=== PATIENT | female | born 1995 | race American Indian/Alaskan Native ===

== ENCOUNTER 2016-09-08 18:10 | Outpatient (CLI) | payer OTHER, MEDICAID | END 2016-09-08 20:34 | disposition home or self-care (01) | LOC: TRG 18:10 → LD 18:14 → TRG 20:34 | PROVIDERS: ATTEND Obstetrics & Gynecology | DX: O47.1 False labor at or after 37 completed weeks of gestation (principal); Z3A.37 37 weeks gestation of pregnancy | CPT/HCPCS: 59025 ==

== ENCOUNTER 2016-09-13 09:09 | Inpatient (IN) | payer OTHER, MEDICAID ==
[2016-09-13] MEDS ORDERED: LACTATED RINGERS 1,000 ML ONE ×2 (09:26→09:27)
[2016-09-13] MEDS ORDERED: BICITRA PO ONE (10:00)
[2016-09-13] MEDS ORDERED: PEPCID IV ONE (10:00)
[2016-09-13] MEDS ORDERED: PITOCin/NS 20 UNIT/1000ML DRIP 20 UNITS/1,000 ML BAG IV SCH ×2 (10:00→13:00)
[2016-09-13] MEDS ORDERED: ANCEF/STERILE WATER 2 GM/20 ML 2 GM/20 ML SYRINGE IV NR (10:00)
[2016-09-13] MEDS ORDERED: REGLAN IV ONE (10:00)
[2016-09-13] MEDS ORDERED: LACTATED RINGERS 1,000 ML IV SCH (10:00)
--- NOTE | 2016-09-13 10:09 | History and Physical Report ---
History of Present Illness Date of examination: 09/13/16 Date of admission: 09/13/16 09:09 Chief complaint: SROM at 38 weeks, 4 days, breech presentation, contractions A pos, R-Im, GBS neg History of present illness: Remainder of H&P from [facility] and confirmed today OB Intake Ethnicity: Methodist: NONE Occupation: Supervisor [employer] Father of baby: Roberth STEIN contact #: [phone] Vital Signs Height: 63 in. Weight (lb): 126.4 BMI: 22.4 Pre- Weight: 135 BP: 110/ 70 mm Hg Ur. Protein: Trace Ur. Glucose: Negative Chief Complaint/Current Status: pt presents c/o missed period, alot of N & V ...................................................................Keisha Robles February 27, 2016 9:53 AM Menstrual History Regularity: regular Menses every: 28 days Duration: 4 LMP: 12/18/2015 LMP reliability: definite LMP character: normal test type: urine test Date: 02/27/2016 BC at conception: none Planned ? no EDC Calculations LMP: 09/23/2016 EDC Confirmation: 09/23/2016 Gestational Age: 10 1/7 weeks Past History : 2 Past Medical History: Reviewed history from 03/10/2010 and no changes required: Asthma Past Surgical History: Reviewed history from 03/10/2010 and no changes required: Negative Past Surgical History Past Medical History Social Hx: Patient is single Smoking History: Patient has never smoked. Infection History Hx of STD: syphilis(2011) Personal hx. of genital herpes: yes Partner hx. of genital herpes: no Rash, Viral, or Febrile illness since last LMP? no Varicella/Chicken Pox Status: Unknown TB Risk: no Infection History Comments: Chlamydia:2012, 2013, 2014 Genetic History Congenital Heart Defect: Mom: no Dad: no Cierra Disease: Mom: no Dad: no Thalassemia Mom: no Dad: no Neural Tube Defect Mom: no Dad: no Down's Syndrome Mom: no Dad: no Paul-Sachs Mom: no Dad: no Sickle Cell Disease/Trait Mom: yes Dad: no Comments: Sister trait Hemophilia Mom: no Dad: no Muscular Dystrophy Mom: no Dad: no Cystic Fibrosis Mom: no Dad: no Evans Chorea Mom: no Dad: no Mental Retardation Mom: no Dad: no Fragile X Mom: no Dad: no Other Genetic/Chromosomal Disorder Mom: no Dad: no Child w/other defect Mom: no Dad: no Enviromental Exposures Enviromental Exposures Reviewed Xray Exposure: no Medication, drug, or alcohol use since LMP: yes Chemical/Other Exposure: no Exposure to Cat Liter: no Hx of Parvovirus (Fifth Disease): no Occupational Exposure to Children: other 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[employer], [employer] Active Medications (reviewed today): ONDANSETRON 8 MG TBDP (ONDANSETRON) 1 po q12hrs prn PLUS 27-1 MG TABS ( VIT-FE FUMARATE-FA) 1 po qd Current Allergies (reviewed today): No known allergies Laboratory Results Routine Urinalysis Leukocytes: trace Nitrite: negative Urobilinogen: negative Protein: Trace Blood: negative Ketone: negative Bilirubin: negative Glucose: Negative Urine HCG: positive [place]/KENNETH Source: vagina WM: rare WBCs, Clue Cells absent, Yeast absent, Trichomonas absent Review of Systems General Denies fever, chills, sweats, anorexia, fatigue, weakness, malaise, weight loss and sleep disorder. Complains of nausea and vomiting. Denies headache, swelling of legs, abdominal pain, vaginal discharge, vaginal bleeding and contractions. Denies vaginal discharge, incontinence, dysuria, hematuria, urinary frequency, amenorrhea, menorrhagia, abnormal vaginal bleeding, pelvic pain, genital sores, decreased libido, painful periods, painful sex, urinary urgency, hot flashes, vaginal dryness, vaginal itching and vaginal odor. CV Denies chest pains, palpitations, syncope, dyspnea on exertion, orthopnea, PND and peripheral edema. Resp Denies cough, dyspnea at rest, excessive sputum, hemoptysis, wheezing and pleurisy. GI Denies nausea, vomiting, diarrhea, constipation, change in bowel habits, abdominal pain, melena, hematochezia, jaundice, gas/bloating, indigestion/ heartburn, dysphagia and odynophagia. Endo Denies cold intolerance, heat intolerance, polydipsia, polyphagia, polyuria and unusual weight change. Breast Denies left breast lump, right breast lump, nipple discharge, bloody discharge from nipple, breast pain, abnormal mammogram and breast enlargement. MS Denies back pain, joint pain, joint swelling, muscle cramps, muscle weakness, stiffness, arthritis, sciatica, restless legs, leg pain at night and leg pain with exertion. Derm Denies rash, itching, dryness and suspicious lesions. Neuro Denies paralysis, paresthesias, headache, seizures, tremors, vertigo, transient blindness, frequent falls, frequent headaches and difficulty walking. Psych Denies depression, anxiety, irritability and mood swings. Eyes Denies blurring, diplopia, irritation, discharge, vision loss, eye pain and photophobia. ENT Denies earache, ear discharge, tinnitus, decreased hearing, nasal congestion, nosebleeds, sore throat and hoarseness. Allergy Denies urticaria, allergic rash, hay fever and recurrent infections. Heme Denies abnormal bruising, bleeding and enlarged lymph nodes. PHYSICAL EXAM HEENT: PERRLA, normal conjunctiva, external nose and nasal mucosa normal, oropharynx clear Neck/Thyroid: supple, thyroid normal Skin no significant abnormal lesions or rashes Chest: respiratory effort normal, clear to auscultation Breasts: normal without skin changes or masses CV: regular, normal S1-S2, no murmur, no rub, no gallop Abdomen: normal bowel sounds, soft, nontender, no HSM Musculoskeletal: grossly normal ROM in joints, no joint tenderness or muscle weakness Neuro: grossly normal DTRs, sensation, strength, cranial nerves Extremities: no clubbing, cyanosis, or edema MEDICARE SPECIALIST Exams Vulva/Vagina: No lesions, normal BUS, normal rugae Cervix: No lesions; no cervical motion tenderness Uterus: 12 weeks NT Adnexae: no masses or tenderness Rectovaginal: no masses or tenderness Flowsheet View for Follow-up Visit Estimated weeks of gestation: 10 7 Weight: 126.4 Blood pressure: 110 / 70 Urine protein: Trace Urine glucose: Negative Urine nitrite: negative Past History - Obstetrical History : 2 Medications and Allergies Allergies Allergy/AdvReac Type Severity Reaction Status Date / Time citrus Allergy Swelling Uncoded 09/13/16 09:33 Home Medications Medication Instructions Recorded Confirmed Last Taken Type No Known Home Medications [No 09/13/16 09/13/16 Unknown History Reported Home Medications] - Vital Signs Vital signs: Vital Signs Pulse Pulse Ox 59 L 98 09/13/16 09:51 09/13/16 09:51 Temp Pulse Resp BP Pulse Ox 64 99 09/13/16 09:58 09/13/16 09:58 Results All other labs normal. Assessment and Plan with breech presentation at 38 weeks and 4 days, spontaneous rupture of membranes and early labor. Was scheduled for c/s on 09/16. Will proceed with delivery. - Patient Problems (1) Breech presentation of fetus Current Visit: Yes Status: Acute Qualifiers: Fetus number: F (2) Full-term PROM with onset of labor within 24 hours of rupture Current Visit: Yes Status: Acute
--- NOTE | 2016-09-13 10:32 | Anesthesia Consultation ---
Anesthesia Consult and Med Hx Date of service: 09/13/16 - Airway Anesthetic Teeth Evaluation: Good ROM Head & Neck: Adequate Mental/Hyoid Distance: Adequate Mallampati Class: Class II Intubation Access Assessment: Probably Good - Pulmonary Exam CTA: Yes - Cardiac Exam Cardiac Exam: RRR - Pre-Operative Health Status ASA Pre-Surgery Classification: ASA2 Proposed Anesthetic Plan: Spinal - Pulmonary Hx Asthma: Yes (as a child, no inhaler) COPD: No Hx Pneumonia: No - Cardiovascular System Hx Hypertension: No - Central Nervous System Hx Seizures: No Hx Psychiatric Problems: No - Endocrine Hx Renal Disease: No Hx End Stage Renal Disease: No Hx Hypothyroidism: No Hx Hyperthyroidism: No - Hematic Hx Anemia: No Hx Sickle Cell Disease: Yes (trait) - Additional Comments Anesthesia Medical History Comments: +IUP
[2016-09-13 10:38] LABS: Basophils % (Auto) 0.1 % (0.0-1.8); Eosinophils % (Auto) 1.9 % (0.0-4.3); Hematocrit 30.3 % (30.3-42.9); Hemoglobin 9.9 gm/dl (10.1-14.3); Mean Corpuscular HGB Conc 33 % (30-34); Mean Corpuscular Hemoglobin 26 pg (28-32); Mean Corpuscular Volume 81 fl (79-97); Platelet Count 151 K/mm3 (140-440); Red Blood Count 3.75 M/mm3 (3.65-5.03); Red Cell Distribution Width 15.1 % (13.2-15.2); White Blood Count 8.7 K/mm3 (4.5-11.0)
[2016-09-13] MEDS ORDERED: TORADOL IV PRN ×2 (11:00→12:33)
[2016-09-13] MEDS ORDERED: ZOFRAN IV PRN ×2 (11:00→12:33)
[2016-09-13] MEDS ORDERED: BENADRYL IV PRN (11:00)
[2016-09-13] MEDS ORDERED: NARCAN 0.4 MG/1 ML IV PRN ×2 (11:00→12:33)
[2016-09-13] MEDS ORDERED: PHENERGAN PO PRN (11:00)
[2016-09-13] MEDS ORDERED: MORPHINE IV PRN ×4 (11:00→12:33)
[2016-09-13] MEDS ORDERED: PHENERGAN PR PRN (11:00)
[2016-09-13] MEDS ORDERED: SODIUM CHLORIDE FLUSH SYRINGE 10 ML IV NR ×2 (11:00→13:00)
[2016-09-13] MEDS ORDERED: MORPHINE ONE (11:12)
[2016-09-13] MEDS ORDERED: ZOFRAN ONE (11:14)
[2016-09-13] MEDS ORDERED: NEO SYNEPHRINE ONE (11:14)
--- NOTE | 2016-09-13 11:18 | Operative Report ---
Operative Report Operative Report: Date of Procedure: 09/13/2016 Procedure name(s): Primary transverse low segment section Pre-operative diagnosis: Intrauterine at 38 weeks and 4 days, spontaneous ruptured membranes, known breech presentation, early labor. A section had been previously discussed with the patient and was scheduled to be performed on 09/16/2016. Patient is a 21-year-old G2, P0 at term blood type A+, rubella immune, GBS negative. Post-operative diagnosis: Same Surgeon: Giulia Saini M.D. Waste Disposal Leakage Tester: OTTO Anesthesia: Spinal EBL: 700 Infant: 2940 g female infant (6 lbs. 8 oz.) Time of : 1146 Findings Normal tubes, uterus and ovaries, in a devonte breech presentation Procedure The patient was taken to the operating room and after adequate anesthesia was obtained she was placed in the supine position in left lateral tilt. Sequential compression devices were in place on both lower extremities and a Torres catheter was placed in a sterile fashion. The abdomen was then prepped and draped in the usual fashion. Surgical time-out was done with the entire OR team attentive. A Pfannenstiel incision was made with a scalpel and sharp dissection was carried down through all layers of the abdomen in the usual fashion. The abdomen was entered bluntly and the lower uterine segment was identified. The presenting part was palpated and a bladder flap was created with the Metzenbaum scissors. The scalpel was used to incise the uterus in a transverse fashion and this incision was extended bluntly with finger traction and the membranes were ruptured. My hand was inserted into the uterus and the breech was grasped and elevated to the incision and fundal pressure. The was delivered to the knees and then these were delivered with a Pinard maneuver. Traction was placed on the sacrum delivering the baby to the level of the shoulders and each arm was delivered easily by simply rotating the torso. The torso was then elevated and the head was delivered easily. The cord was clamped and cut and a viable infant was suctioned and handed off to the attending NICU staff and was a 6 lbs. 8 oz. female with Apgars of 8 and 9. The placenta was removed manually, the interior of the uterus was cleansed with moist lap packs and the uterus was exteriorized. The uterine incision was closed with a double imbricating layer of 0 Vicryl suture in a running fashion. Hemostasis was adequate and the uterus was returned to the abdomen. Uterus was well contracted and blood clots were removed from the abdomen with a moist lap sponge. The abdomen was then closed in layers: the rectus muscles were closed with several [id number] sutures of 0 Vicryl, the fascia was closed with running sutures of 0 Vicryl starting at both side corners in turn and tied together in the midline. The subcutaneous tissue was irrigated and then closed with several interrupted sutures of 2-0 plain and the skin was closed with a running subcuticular suture of 4-0 Vicryl. Sponge and Lap count correct X 3, estimated blood loss was 100 mL and the Torres was draining clear urine. The patient tolerated the procedure well and was discharged to PACU in good condition.
[2016-09-13] MEDS ORDERED: WATER FOR IRRIG STERILE IR ONE (11:20)
[2016-09-13] MEDS ORDERED: NACL 0.9% IR ONE (11:20)
[2016-09-13] MEDS ORDERED: NACL 0.9% 100 ML ONE (11:31)
[2016-09-13] MEDS ORDERED: VERSED ONE (11:50)
[2016-09-13] MEDS ORDERED: BENADRYL ONE (12:25)
[2016-09-13] MEDS ORDERED: MILK OF MAGNESIA PO PRN (12:33)
[2016-09-13] MEDS ORDERED: TYLENOL PO PRN (12:33)
[2016-09-13] MEDS ORDERED: LANSINOH TP PRN (12:33)
[2016-09-13] MEDS ORDERED: TUCKS PAD TP PRN (12:33)
[2016-09-13] MEDS: D5LR 1,000 ML IV SCH ×2 (15:30→23:56)
[2016-09-13] MEDS: ANCEF/NS 1 GM/50 ML 1 GM/50 ML BAG IV SCH (21:22)
[2016-09-14 01:23] LABS: Hematocrit 27.8 % (30.3-42.9)
[2016-09-14] MEDS: PERCOCET 5/325 PO PRN ×3 (03:27→22:38)
[2016-09-14] MEDS: MOTRIN PO PRN ×2 (03:27→13:46)
[2016-09-14] MEDS: ANCEF/NS 1 GM/50 ML 1 GM/50 ML BAG IV SCH (05:37)
--- NOTE | 2016-09-14 06:03 | Progress Note ---
Assessment and Plan - Patient Problems (1) delivery delivered Onset Date: ~09/13/16 Current Visit: Yes Status: Acute Plan to address problem: pt w/o complaint VSS FF below umb Lochia small Dressing removed Incision dry and intact H&H9/27 chronic anemia Pt asymptomatic PO iron ordered. Doing well s/ p section P: continue pathway; po iron; abd binder. Adv diet and activity as tolerated. Subjective - Subjective Date of service: 09/14/16 (DRESSING REMOVED) Principal diagnosis: S/P Primary section / BREECH Day#1 Patient reports: appetite normal, voiding normally, pain well controlled, ambulating normally : doing well Objective - Vital Signs Latest vital signs: Vital Signs Temp Pulse Pulse Resp BP BP Pulse Ox 09/14/16 00:40 98.5 F 57 L 20 120/60 09/13/16 21:15 97.8 F 55 L 18 131/68 09/13/16 15:40 98 F 51 L 18 151/77 09/13/16 14:16 156 H 44 H 09/13/16 12:38 97.6 F 09/13/16 10:42 72 143/82 96 09/13/16 10:41 61 96 09/13/16 10:40 71 96 09/13/16 10:36 97.7 F 74 18 143/82 97 09/13/16 10:28 63 99 09/13/16 10:27 59 L 99 09/13/16 10:26 60 99 09/13/16 10:25 54 L 99 09/13/16 10:24 57 L 98 09/13/16 10:23 65 99 09/13/16 10:22 63 99 09/13/16 10:21 72 99 09/13/16 10:20 62 99 09/13/16 10:19 56 L 99 09/13/16 10:18 60 99 09/13/16 10:17 66 99 09/13/16 10:16 64 99 09/13/16 10:15 64 99 09/13/16 10:14 61 99 09/13/16 10:13 77 99 09/13/16 10:12 79 99 09/13/16 10:11 77 99 09/13/16 10:10 90 99 09/13/16 10:09 117 H 98 09/13/16 10:08 123 H 96 09/13/16 10:07 89 99 09/13/16 10:06 79 94 09/13/16 10:05 75 99 09/13/16 10:04 67 99 09/13/16 10:03 57 L 99 09/13/16 10:02 71 99 09/13/16 10:01 76 99 09/13/16 10:00 91 H 97 09/13/16 09:59 76 98 09/13/16 09:58 59 L 99 09/13/16 09:57 57 L 99 09/13/16 09:56 68 99 09/13/16 09:55 76 99 09/13/16 09:54 82 99 09/13/16 09:53 75 99 09/13/16 09:52 75 98 09/13/16 09:51 59 L 98 Intake and Output 09/13/16 09/13/16 09/14/16 14:59 22:59 06:59 Intake Total 1800 1240 1720 Output Total 266 294 0922 Balance 1100 840 720 Intake: IV 7747 283 6992 ANCEF/NS 1 GM/50 ML 1 gm 50 In 50 ml @ 100 mls/hr IV Q8H NISHA Rx#:[id number] D5lr 1,000 ml @ 125 mls/ 1000 hr IV DIRECT NISHA Rx#: [id number] PITOCin/NS 20 UNIT/1000ML 750 DRIP 20 units In 1,000 ml @ 250 mls/hr IV DIRECT NISHA Rx#:[id number] Oral 440 Intake, Free Water 720 Output: Urine 182 539 4507 Indwelling Catheter 400 1000 Other: Total, Intake Amount 200 Total, Output Amount 400 1000 Weight 157 lb Estimated Blood Loss 700 Patient Weight 09/14/16 06:59 Weight 157 lb - Exam Breasts: Present: normal Cardiovascular: Present: Regular rate Lungs: Present: Clear to auscultation Abdomen: Present: normal appearance, soft, normal bowel sounds Uterus: Present: normal, fundal height below umbilicus Extremities: Present: normal Deep Tendon Reflex Grade: Normal +2 Incision: Present: normal, dry, intact (dressing removed) - Labs Labs: Abnormal lab results 09/13/16 09/14/16 Range/Units 10:00 00:51 Hgb 9.9 L 9.0 L (10.1-14.3) gm/dl Hct 27.8 L (30.3-42.9) % MCH 26 L (28-32) pg Lymph % (Auto) 10.9 L (13.4-35.0) % [place] % (Auto) 7.5 H (0.0-7.3) % Lymph # 0.9 L (1.2-5.4) K/mm3 Seg Neutrophils % 79.6 H (40.0-70.0) %
[2016-09-14] MEDS: FEOSOL PO SCH ×2 (09:22→22:36)
[2016-09-14] MEDS: COLACE PO SCH ×2 (09:22→22:36)
--- NOTE | 2016-09-14 11:02 | Progress Note ---
Subjective Date of service: 09/14/16 Principal diagnosis: S/P Primary section / BREECH Day#1 Interval history: 1st POD after Patient is in the bed, comfortable. Pain is well controlled with pain meds. Ambulated well, no residual neurological deficit. No pruritus. No anesthesia complications Objective - Constitutional Vitals: Vital Signs - 12hr 09/14/16 09/14/16 09/14/16 00:40 05: 08:27 Temperature 98.5 F 97.9 F 97.5 F L Pulse Rate [ 57 L 60 Left] Pulse Rate [ 52 L Right] Respiratory 20 18 18 Rate Blood Pressure 120/60 120/60 [Left Arm] Blood Pressure 117/61 [Right Arm] - Labs CBC & Chem 7: 09/14/16 00:51 Labs: Abnormal lab results 09/14/16 Range/Units 00:51 Hgb 9.0 L (10.1-14.3) gm/dl Hct 27.8 L (30.3-42.9) %
[2016-09-14] MEDS ORDERED: BOOSTRIX IM ONE (12:35)
[2016-09-15] MEDS: MOTRIN PO PRN (05:55)
--- NOTE | 2016-09-15 06:08 | Discharge Summary ---
Providers - Providers Date of Admission: 09/13/16 09:09 Date of discharge: 09/15/16 (pt request to be d/c) Attending physician: JEN GUZMÁN 09/13/16 12:33 Consult to Patient Access Associate [CONS] Routine Reason For Exam: Primary care physician: ANSELMO JACKSON Hospitalization Reason for admission: section, rupture of membranes Delivery: Procedure: primary low transverse Episiotomy: none Laceration: none Incision: dry, intact Other procedures: none complications: none Discharge diagnosis: IUP at term delivered [place] baby: female Hospital course: Uncomplicated section Pt w/o complaint VSS FF below umb Lochia scant Incision D&I Pt w/o sx of anemia Doing well s/p section for breech. P: d/c today with instructions RTO 1 week for postop visit. Condition at discharge: Good Disposition: DISCHARGED TO HOME OR SELFCARE - Discharge Diagnoses (1) delivery delivered Status: Acute Comment: 1 week postop Plan - Discharge Medications Prescriptions: Docusate Sodium [Colace] 100 mg PO BID PRN #60 capsule PRN Reason: Constipation Ferrous Sulfate [Feosol 325 MG tab] 325 mg PO BID #60 tablet Ibuprofen [Motrin 800 MG tab] 800 mg PO Q8HR PRN #30 tablet PRN Reason: Pain oxyCODONE /ACETAMINOPHEN [Percocet 5/325 mg] 1 - 2 tab PO Q4HR PRN #30 tab PRN Reason: Pain - Provider Discharge Summary Activity: routine, no sex for 6 weeks, no heavy lifting 4 weeks, no strenuous exercise Diet: routine Instructions: routine Additional instructions: [] Smoking cessation referral if applicable(refer to patient education folder for contact #) [] Refer to [facility] Booklet Call your doctor immediately for: * Fever > 100.5 * Heavy vaginal bleeding ( >1 pad per hour) * Severe persistent headache * Shortness of breath * Reddened, hot, painful area to leg or breast * Drainage or odor from incision. * Keep incision clean and dry at all times and follow doctor's instructions regarding bathing/showering - Follow up plan Follow up: ANSELMO JACKSON MD [Primary Care Provider] - 7 Days (Congratulations! Please call [phone] to schedule your postoperative visit in one week. Take medication as prescribed. Call with any concerns.)
[2016-09-15] MEDS: FEOSOL PO SCH (09:43)
[2016-09-15] MEDS: COLACE PO SCH (10:49)
[2016-09-15 18:38] VITALS: BP 130/78
== END 2016-09-15 17:35 | disposition home or self-care (01) | DRG 766 ==
LOC: APU 09:09 → OB 14:21
PROVIDERS: ADMIT Obstetrics & Gynecology; ATTEND Obstetrics & Gynecology
PROC: 10D00Z1 Extraction of Products of Conception, Low, Open Approach (ICD-10-PCS; principal; 2016-09-13)
DX: O32.1XX0 Maternal care for breech presentation, not applicable or unspecified (principal); O42.02 Full-term premature rupture of membranes, onset of labor within 24 hours of rupture; O99.02 Anemia complicating childbirth; D64.9 Anemia, unspecified; Z3A.38 38 weeks gestation of pregnancy; Z37.0 Single live birth
CPT/HCPCS: 36415; 85014; 85018; 85025; 86850; 86900; 86901; 99211; G0463; J0690; J1200; J1885; J2250; J2270; J2370; J2405; J2590; J2765; J7120; J7121; Q0169